=== PATIENT | female | born 1985 | race Caucasian/White ===

== ENCOUNTER 2020-06-27 17:44 | Emergency (ER) | payer OTHER, MEDICAID ==
[~2020-06-27] VITALS: Ht 167.6 cm; Wt 61.4 kg
[~2020-06-27 17:44] MED LIST: AMPH30CA6 PO; BACL-19 PO; BUSP10TA PO; CLON2TAB PO; COLE1TAB2 BC; HYDR-826 PO; HYDR50CA PO; NITR100C56 PO; OMEP20TA62 PO; ONDA4TAB7 PO; OXYC1TAB7 PO; PANCREAZE 10,51 EACH PO; TRAM50TA2 PO; VARE1TAB21 BC; ZIPR80CA2 PO; ZOLP10TA PO
--- NOTE | 2020-06-27 18:32 | NUR ---
pt walked back to room. as
[2020-06-27 18:55] LABS: BASOPHILS % (AUTO) 0 % (0-1); EOSINOPHILS % (AUTO) 1 % (1-7); LYMPHOCYTES % (AUTO) 31 % (22-44); MEAN CORPUSCULAR HEMOGLOBIN 28.8 pg (27.0-34.8); MEAN CORPUSCULAR HGB CONC 33.1 g/dL (32.4-35.8); MEAN PLATELET VOLUME 7.5 fL (7.4-10.4); MONOCYTES % (AUTO) 6 % (2-9); NEUTROPHILS % (AUTO) 62 % (42-75); PLATELET COUNT 294 x10^3/uL (130-400); RED BLOOD COUNT 4.61 x10^6/uL (3.82-5.3); RED CELL DISTRIBUTION WIDTH 12.5 % (9.6-15.2)
[2020-06-27 18:56] LABS: MD NO
[2020-06-27 19:03] LABS: ALANINE AMINOTRANSFERASE 18 U/L (12-78); ALBUMIN 3.5 g/dL (3.4-5.0); ANION GAP 5 mmol/L (5-15); CALCIUM 8.7 mg/dL (8.5-10.1); CHLORIDE 106 mmol/L (98-107); CREATININE 0.79 mg/dL (0.55-1.02)
[2020-06-27 19:07] LABS: ALKALINE PHOSPHATASE 63 U/L (45-117); BILIRUBIN,TOTAL 0.2 mg/dL (0.2-1.0); TOTAL PROTEIN 7.8 g/dL (6.4-8.2)
--- NOTE | 2020-06-27 19:18 | NUR ---
ua walked to lab, plan for us. as
[2020-06-27 19:20] LABS: MICROSCOPIC NOT IND
[2020-06-27] MEDS ORDERED: KETOROLAC 60 MG/2 ML ONE (19:41)
[2020-06-27 19:55] VITALS: BP 105/74
--- NOTE | 2020-06-27 19:55 | NUR ---
pt sitting quietly in bed texting. "i don't think toradol is going to work". sts only dilaudid and oxycodone works. as
[2020-06-27] MEDS ORDERED: KETOROLAC 60 MG/2 ML IM ONE (20:00)
== END 2020-06-27 20:26 | disposition home or self-care (01) ==
LOC: ED 18:46
DX: R10.13 Epigastric pain (principal); G89.29 Other chronic pain; R10.10 Upper abdominal pain, unspecified
CPT/HCPCS: 36415; 76700; 80053; 81003; 83690; 84703; 85025; 96372; 99284; J1885